=== PATIENT | male | born 1980 | race Caucasian/White ===

== ENCOUNTER 2022-11-26 15:09 | Emergency (ER) | payer OTHER ==
[~2022-11-26] VITALS: Ht 172.7 cm; Wt 93.0 kg
[2022-11-26] MEDS ORDERED: KETOROLAC 60 MG VIAL (30MG/ML) IM ONE (18:00)
[2022-11-26] MEDS ORDERED: ORPHENADRINE CITRATE 30 MG/ML ML IM ONE (18:00)
[2022-11-26 18:17] VITALS: BP 120/76
[2022-11-26] MEDS ORDERED: DICL75TA5 PO (19:40)
[2022-11-26] MEDS ORDERED: METH-662 PO (19:40)
== END 2022-11-26 19:52 | disposition home or self-care (01) ==
LOC: EDH 15:09
DX: S43.401A Unspecified sprain of right shoulder joint, initial encounter (principal); R07.81 Pleurodynia; V87.8XXA Person injured in other specified noncollision transport accidents involving motor vehicle (traffic), initial encounter; Y93.89 Activity, other specified; Y92.89 Other specified places as the place of occurrence of the external cause; Y99.8 Other external cause status
CPT/HCPCS: 99284; 73000; 71100; 73030; 96372 ×2; J1885; J2360